=== PATIENT | male | born 1990 | race Caucasian/White ===

== ENCOUNTER 2018-02-24 10:58 | Day surgery (SDC) | payer BC ==
[2018-02-23 15:58] VITALS: BMI 23.0
[2018-02-24] MEDS ORDERED: Midazolam HCl 2 mg/2 ml Vial ONE (12:40)
[2018-02-24] MEDS ORDERED: HYDROmorphone 2 MG/ML VIAL ONE (12:40)
[2018-02-24] MEDS ORDERED: Fentanyl 100 MCG/2 ML VIAL ONE ×2 (12:40→15:01)
[2018-02-24] MEDS ORDERED: CEFAZOLIN/Water 2 GM/20 ML SYRINGE ONE (12:50)
[2018-02-24] MEDS ORDERED: HYDROmorphone 0.5 MG/0.5 ML SYRINGE ONE ×2 (13:06→13:18)
[2018-02-24] MEDS ORDERED: Bupivacaine HCl 0.5%/Epinephrine 1:200,000/PF 30 ml Vial ONE (13:21)
--- NOTE | 2018-02-24 14:43 | RAD ---
RIGHT CLAVICLE TWO VIEWS: Indication: ORIF FINDINGS/IMPRESSION: Two fluoroscopic views are presented. Images show plate and screws transfixing the right clavicle. POS: [facility]
--- NOTE | 2018-02-24 18:17 | OP ---
DATE OF PROCEDURE: 02/24/2018 OPERATION: Open reduction and internal fixation of right clavicle fracture. PREOPERATIVE DIAGNOSIS: Right midshaft clavicle fracture with significant shortening. POSTOPERATIVE DIAGNOSIS: Right midshaft clavicle fracture with significant shortening. COMPLICATIONS: None. ESTIMATED BLOOD LOSS: 100 mL. SURGEON: Juancarlos Norton M.D. IMPLANTS: Synthes superior anterior precontoured clavicle plate with locking and nonlocking screws. INDICATIONS: Mr. Quintero is a 27-year-old male who has fractured his right clavicle. He fell hard wh ile playing soccer. He was indicated for open reduction and internal fixation given that he has sign ificant shortening of the clavicle and displacement. He was indicated for surgical open reduction an d internal fixation. Risks have been reviewed including hardware related pain, numbness, nerve or va scular injury, pulmonary injury, wound infection or other complication. DESCRIPTION OF PROCEDURE: Mr. Quintero was identified in the preoperative holding area. His correct e xtremity was marked. He was carried to the operating room. He was positioned supine. General anest hesia was induced. A multidisciplinary timeout was performed. The patient's right shoulder and arm was prepped and draped in sterile fashion. At this point, we performed an incision directly over the clavicle. We dissected down through the atkins bcutaneous tissues to the platysma muscle, which was incised. We then exposed the clavicle bone. Th ere was a significantly shortened and displaced clavicle fracture. This was a 3-part fracture. We c leared the fracture edges. We then proceeded to reduce the fracture back into its anatomic position using K-wires. We also used an interfragmentary screw. At this point, we placed a Synthes plate renan ng the superior and anterior surface of the clavicle. We placed multiple locking screws and nonlocki ng screws proximally and distally locking the plate to the bone. We took x-ray images confirming our reduction and plate and hardware placement. There were no complications. At this point, we irrigat ed thoroughly. We then closed with 0 Vicryl suture, 2-0 Vicryl suture and luis felipe for the skin. A s terile dressing was applied. The patient was taken to the recovery room in good condition without co mplication.
== END 2018-02-24 17:42 | disposition home or self-care (01) ==
LOC: SDC 10:58
PROVIDERS: ATTEND Orthopaedic Surgery
PROC: 0PS904Z Reposition Right Clavicle with Internal Fixation Device, Open Approach (ICD-10-PCS; principal; 2018-02-24)
DX: S42.001A Fracture of unspecified part of right clavicle, initial encounter for closed fracture (principal); W18.30XA Fall on same level, unspecified, initial encounter; Y93.66 Activity, soccer
CPT/HCPCS: 76001; 96374; C1713; J0670; J1170; J2250; J3010